=== PATIENT | female | born 1975 | race Caucasian/White ===

== ENCOUNTER 2016-10-18 17:00 | Inpatient (IN) | payer MEDICAID ==
[2016-10-18 23:42] VITALS: BP 116/86; PULSE 63; RESP 16; TEMP 97.5; O2SAT 99
[2016-10-19] MEDS ORDERED: MAGNESIUM HYDROXIDE SUSP 30 ML CUP PO PRN (02:30)
[2016-10-19] MEDS ORDERED: LORazepam 2 MG/ML VIAL IM PRN (02:30)
[2016-10-19 06:02] VITALS: BP 94/56; PULSE 60; RESP 16; TEMP 97.2
[2016-10-19] MEDS ORDERED: PNEUMOCOCCAL POLYVALENT INJ 25 MCG/0.5 ML SYR IM ONE (09:00)
[2016-10-19] MEDS ORDERED: INFLUENZA VIRUS VACCINE (QUADRIVALENT) 0.5 ML SYR IM ONE (09:00)
[2016-10-19] MEDS: ACETAMINOPHEN 325 MG TAB PO PRN ×2 (09:01→21:07)
[2016-10-19 09:10] LABS: AUTOMATED NEUTROPHIL # 2.2 TH/MM3 (1.8-7.7); BASOPHIL % 0.6 % (0.0-2.0); EOSINOPHIL # 0.3 TH/MM3 (0-0.4); EOSINOPHIL % 5.3 % (0.0-4.0); HEMATOCRIT 37.3 % (35.0-46.0); HEMO FLAGS DIFF FINAL; LYMPH % 47.5 % (9.0-44.0); LYMPHOCYTE # 2.6 TH/MM3 (1.0-4.8); MEAN CELL VOLUME 85.8 FL (80.0-100.0); MEAN CORPUSCULAR HEMOGLOBIN 27.9 PG (27.0-34.0); MEAN CORPUSCULAR HGB CONC 32.6 % (32.0-36.0); MONO % 6.3 % (0.0-8.0); NEUT % 40.3 % (16.0-70.0); PLATELET COUNT 240 TH/MM3 (150-450); RED BLOOD COUNT 4.35 MIL/MM3 (4.00-5.30); RED CELL DISTRIBUTION WIDTH 15.1 % (11.6-17.2); WHITE BLOOD COUNT 5.6 TH/MM3 (4.0-11.0)
[2016-10-19 09:30] LABS: BICARBONATE 26.3 MEQ/L (21.0-32.0); POTASSIUM 3.5 MEQ/L (3.5-5.1)
[2016-10-19 09:40] LABS: HDL CHOLESTEROL 64.3 MG/DL (40.0-60.0)
--- NOTE | 2016-10-19 10:47 | HHI.HP ---
Provisional Diagnosis Admission Date Oct 18, 2016 at 17:00 [place] I. Sedative hypnotics use disorder, substance-induced mood disorder [place] II. Deferred [place] III. Hypothyroidism, asthma, migraine [place] IV. Unemployed [place] V. 45 Certification of Person's Competence To Provide Express and Informed Consent I have personally examined Leah Gonzalez , a [facility] on, Oct 19, 2016 10:31. Express and informed consent means consent voluntarily given in writing, by a competent person, after sufficient explanation and disclosure of the subject matter involved to enable the person to make a knowing and willful decision without any element of force, fraud, deceit, duress, or other form of constraint or coercion. This person is 18 years of age or older, is not now known to be incompetent to consent to treatment with a guardian advocate, and does not have a health care surrogate or proxy currently making medical treatment decisions. I have found this person to be one of the following: [] Competent to provide express and informed consent, as defined above, for voluntary admission to this facility and is competent to provide express and informed consent for treatment. He/she has the consistent capacity to make well reasoned, willful, and knowing decisions concerning his or her medical or mental health treatment. The person fully and consistently understands the purpose of the admission for examination/placement and is fully capable of personally exercising all rights assured [place] Incompetent to provide express and informed consent to voluntary admission, and this is incompetent to provide express and informed consent to treatment. The person must be transferred to involuntary status and a petition for a guardian advocate filed with the Circuit Court. [X] Refusing to provide express and informed consent to voluntary admission but is competent to provide express and informed consent for treatment. The person must be discharged or transferred to involuntary status. Form shall be completed within 24 hours of a person's arrival at the receiving facility and filed in the clinical record of each person: 1. Admitted on a voluntary basis 2. Permitted to provide express and informed consent to his/her own treatment 3. Allowed to transfer from involuntary to voluntary status 4. Prior to permitting a person to consent to his or her own treatment after having been previously found incompetent to consent to treatment. History of Present Illness Capacity: Has Capacity HPI The patient is a 41-year-old Slovak woman, Italian speaker, , domicile with her and kids, mother of 9 kids, 4 of them living with her here in [place], unemployed, with psychiatric history of anxiety and depression, no previous psychiatric hospitalizations, no previous suicide attempts, no psychotropics, medical history of asthma, hypothyroidism and migraine, who was brought to the [place] act transferred from [facility] due to overdose with Fioricet. Chart was reviewed, case discussed with the nurse in charge, no collateral information couldn't be obtained at this moment, interview was performed in Italian in the psychiatric spivey. On psychiatric evaluation the patient was calm and cooperative, patient explains that after an argument with , after a very stressful week, she decided to overdose with about 10 pills of Fioricet with the intention to go to sleep. Patient states that she did know wanted to , she has too many reasons to live for, she has 9 kids, 4 of them note minors and she is hopeful that future is very better for her. However, patient states that for the last 3 months, since she moved from [place] to [place], life has been very stressful especially because of economical problems. At this moment the patient denies suicidal or homicidal ideation. She described her mood as fine, she denies hopelessness, helplessness, anhedonia, problems sleeping, problems with concentration or appetite, she denies anxiety, perceptual disturbances, past and current symptoms of max. Patient is fully oriented 3. She denies the use of illicit drugs and alcohol, however she admits overuse of Fioricet, mostly because of frequent headaches, but also because he has with anxiety and help to sleep. She is pacing in a day she may take 2-4-6 pills, she denies past symptoms of withdrawal. Review of Systems Constitutional: DENIES: Diaphoretic episodes, Fatigue, Fever, Weight gain, Weight loss, Chills, Dizziness, Change in appetite, Night Sweats Endocrine: DENIES: Abnorml menstrual pattern, Heat/cold intolerance, Polydipsia , Polyuria, Polyphagia Eyes: DENIES: Blurred vision, Diplopia, Eye inflammation, Eye pain, Vision loss , Photosensitivity, Double Vision Ears, nose, mouth, throat: DENIES: Tinnitus, Hearing loss, Vertigo, Nasal discharge, Oral lesions, Throat pain, Hoarseness, Ear Pain, Running Nose, Epistaxis, Sinus Pain, Toothache, Odynophagia Respiratory: DENIES: Apneas, Cough, Snoring, Wheezing, Hemoptysis, Sputum production, Shortness of breath Cardiovascular: DENIES: Chest pain, Palpitations, Syncope, Dyspnea on Exertion , PND, Lower Extremity Edema, Orthopnea, Claudication Gastrointestinal: DENIES: Abdominal pain, Black stools, Bloody stools, Constipation, Diarrhea, Nausea, Vomiting, Difficulty Swallowing, Anorexia Musculoskeletal: DENIES: Joint pain, Muscle aches, Stiffness, Joint Swelling, Back pain, Neck pain Integumentary: DENIES: Abnormal pigmentation, Pruritus, Rash, Nail changes, Breast masses, Breast skin changes, Nipple discharge Hematologic/lymphatic: DENIES: Bruising, Lymphadenopathy Immunologic/allergic: DENIES: Eczema, Urticaria Neurologic: DENIES: Abnormal gait, Headache, Localized weakness, Paresthesias, Seizures, Speech Problems, Tremor, Poor Balance Past Family Social History Coded Allergies: No Known Allergies (Unverified , 10/19/16) Current Medications Medications (Trade) Dose Ordered Sig/Kalin Route Start Time Stop Time Status Last Admin (Ativan) 1 mg Q6H PRN PO 10/19/16 02:30 (Ativan Inj) 1 mg Q6H PRN IM 10/19/16 02:30 (Tylenol) 650 mg Q4H PRN PO 10/19/16 02:30 10/19/16 09:01 (Milk Of Magnesia Liq) 30 ml DAILY PRN PO 10/19/16 02:30 (Mag-Al Plus Susp Liq) 30 ml Q6H PRN PO 10/19/16 02:30 Social History Patient was born and raised in [place], she has been living in [place] for 7 months, she is unemployed, she lived with her and 4 of her 9 kids. Physical Exam Vital Signs Vital Signs Date Time Temp Pulse Resp B/P Pulse Ox O2 Delivery O2 Flow Rate FiO2 10/19/16 06:02 97.2 60 16 94/56 10/18/16 23:42 99 Mental Status Examination Appearance Overweigh woman, age appearing, good hygiene,, cooperative Speech: Unremarkable Orientation: x3 Memory: Unremarkable Thought Process: Logical Thought Content: Unremarkable Hallucination Type: None Attention and Concentration: Good Suicidal Ideation: No Previous Suicide Attempts: Yes Homicidal Ideation: No Insight: Fair Judgement: Impulsive Affect: Euthymic Mood: Euthymic Motor Activity: Normal gait Assessment & Plan Problem List: (1) Substance induced mood disorder Assessment & Plan: 41-year-old Rican woman, with psychiatric history of anxiety and depression, no previous psychiatric hospitalizations, no previous suicidal attempt, who was brought to the hospital on the [place] act after overdosed with Fioricet. On psychiatric evaluation the patient admits overdosing with Fioricet, but denies suicidal intention. Patient also admits overusing this medication daily. At this moment she denies depressive symptoms , she denies anxiety, she denies max and perceptual disturbances. However, since collateral information is not available, is highly suspicious that patient may be minimizing depressive symptomatology and also more longitudinal observation would be important to complete the assessment, the patient will continue the process of psychiatric hospitalization for stabilization, observation and safety. I have the impression that this could be a short hospitalization. Extensive support, motivation psycho education provided. No psychotropics will be started at this moment. ICD Code: F19.94 Assessment & Plan Estimated LOS: 1-2 days Rajinder Cardenas MD Oct 19, 2016 10:47
--- NOTE | 2016-10-19 14:23 | PD.CONS ---
HPI Service [facility] Consult Requested By Psychiatric services Reason for Consult Medical management hypothyroidism, hyperlipidemia, chest pain intermittently ( not currently), chronic migraine and headaches Primary Care Physician Unknown Diagnoses: History of Present Illness This is a 41-year-old female patient Cook Islander-speaking only interview done by Dr. Sahu with nurse Jero corrigan. Patient has no history which includes hypothyroidism, migraine headaches, asthma and hyperlipidemia. Patient reports that she has been taking her Synthroid as well as her Singulair and her cholesterol medication on a regular basis. Patient reports that she takes Fioricet migraine headaches but has been told to stop taking them due to her potassium. Patient reports at this time she is a mild headache constant consistent with her typical migraines. Patient denies associated symptoms. Patient denies chest pain shortness of breath diaphoresis nausea vomiting diarrhea constipation fevers or chills. Patient does report loose stools proximal 2 days ago denies abdominal pain. Review of Systems Other All other systems reviewed and negative except as mentioned in history of present illness Past Family Social History Allergies: Coded Allergies: No Known Allergies (Unverified , 10/19/16) Past Medical History hypothyroidism, migraine headaches, asthma and hyperlipidemia Past Surgical History Tubal ligation Reported Medications Synthroid unknown dose, furosemide 25 mg as needed for headache, Singulair for asthma and cholesterol medication unknown Active Ordered Medications Current Medications Medications (Trade) Dose Ordered Sig/Kalin Route Start Time Stop Time Status Last Admin (Ativan) 1 mg Q6H PRN PO 10/19/16 02:30 (Ativan Inj) 1 mg Q6H PRN IM 10/19/16 02:30 (Tylenol) 650 mg Q4H PRN PO 10/19/16 02:30 10/19/16 09:01 (Milk Of Magnesia Liq) 30 ml DAILY PRN PO 10/19/16 02:30 (Mag-Al Plus Susp Liq) 30 ml Q6H PRN PO 10/19/16 02:30 Family History Grandfather had diabetes Social History Denies EtOH use tobacco use or illicit drug use Physical Exam Vital Signs Vital Signs Date Time Temp Pulse Resp B/P Pulse Ox O2 Delivery O2 Flow Rate FiO2 10/19/16 06:02 97.2 60 16 94/56 10/18/16 23:42 97.5 63 16 116/86 99 Physical Exam GENERAL: This is a well-nourished, well-developed patient, in no apparent distress. SKIN: No rashes, ecchymoses or lesions. Cool and dry. HEAD: Atraumatic. Normocephalic. No temporal or scalp tenderness. EYES: Extraocular motions intact. No scleral icterus. No injection or drainage. ENT: Nose without bleeding, purulent drainage or septal hematoma. Throat without erythema, tonsillar hypertrophy or exudate. Uvula midline. Airway patent. NECK: Trachea midline. No JVD or lymphadenopathy. Supple, nontender, no meningeal signs. CARDIOVASCULAR: Regular rate and rhythm without murmurs, gallops, or rubs. RESPIRATORY: Clear to auscultation. Breath sounds equal bilaterally. No wheezes , rales, or rhonchi. GASTROINTESTINAL: Abdomen soft, non-tender, nondistended. No guarding. MUSCULOSKELETAL: Extremities without clubbing, cyanosis, or edema. No joint tenderness, effusion, or edema noted. No calf tenderness. Negative Homans sign bilaterally. NEUROLOGICAL: Awake and alert. No focal deficit Motor and sensory grossly within normal limits. Five out of 5 muscle strength in all muscle groups. Laboratory Laboratory Tests Test 10/19/16 08:31 White Blood Count 5.6 Red Blood Count 4.35 Hemoglobin 12.1 Hematocrit 37.3 Mean Corpuscular Volume 85.8 Mean Corpuscular Hemoglobin 27.9 Mean Corpuscular Hemoglobin 32.6 Concent Red Cell Distribution Width 15.1 Platelet Count 240 Mean Platelet Volume 8.1 Neutrophils (%) (Auto) 40.3 Lymphocytes (%) (Auto) 47.5 Monocytes (%) (Auto) 6.3 Eosinophils (%) (Auto) 5.3 Basophils (%) (Auto) 0.6 Neutrophils # (Auto) 2.2 Lymphocytes # (Auto) 2.6 Monocytes # (Auto) 0.4 Eosinophils # (Auto) 0.3 Basophils # (Auto) 0.0 CBC Comment DIFF FINAL Differential Comment Sodium Level 139 Potassium Level 3.5 Chloride Level 105 Carbon Dioxide Level 26.3 Anion Gap 8 Blood Urea Nitrogen 7 Creatinine 0.88 Estimat Glomerular Filtration 70 Rate Random Glucose 93 Calcium Level 8.2 Triglycerides Level 227 Cholesterol Level 282 LDL Cholesterol 172 HDL Cholesterol 64.3 Cholesterol/HDL Ratio 4.38 Thyroid Stimulating Hormone 74.200 3rd Gen Result Diagram: 10/19/1631 10/19/1631 Assessment and Plan Assessment and Plan This is a 41-year-old female patient Cook Islander-speaking only interview done by Dr. Sahu with nurse Jero crorigan. Patient has no history which includes hypothyroidism, migraine headaches, asthma and hyperlipidemia. Mild Headache- will start ibuprofen as needed - if not relieved by ibuprofen may try Fioricet Hypothyroidism patient reports she has taken her regular Synthroid dose although TSH should be elevated at 74 check free T4 and free T3 Hyperlipidemia patient reports she is taking her cholesterol medication as she is unable to recall the name or dose LDL elevated at 6 when 72 will have RN verified medication and dose with pharmacy and adjust as indicated Asthma will continue Singulair with duo nebs as needed DVT prophylaxis patient is ambulatory Discussed with patient nurse Written by Krysta Guerra, acting as scribe for Dr. Sahu on 10/19/16 at 14:23. The documentation accurately reflects the work performed [id number] by me on at 14:23 Krysta Guerra Oct 19, 2016 14:23 Fabian Sahu MD Oct 19, 2016 15:02
[2016-10-19] MEDS ORDERED: IBUPROFEN 600 MG TAB PO PRN (14:30)
[2016-10-19] MEDS ORDERED: RESP: ALBUTEROL 2.5 MG/IPRATROPIUM 0.5 MG NEB (PRN) NEB (15:00)
[2016-10-19 15:07] LABS: FREE T3 0.96 PG/ML (2.18-3.98); FREE T4 0.57 NG/DL (0.76-1.46)
[2016-10-19] MEDS ORDERED: BUTA1CAP PO (16:15)
[2016-10-19] MEDS ORDERED: SIMV20TA PO (16:24)
[2016-10-19] MEDS ORDERED: LEVO100T5 PO (16:26)
[2016-10-19] MEDS: IBUPROFEN 400 MG TAB PO PRN (16:39)
[2016-10-19] MEDS: ALUMINUM/MAGNESIUM/SIMETH 30 ML CUP PO PRN (16:40)
[2016-10-19 18:00] VITALS: BP 120/87; PULSE 72; RESP 16; TEMP 98.2; O2SAT 96
[2016-10-19] MEDS: LORazepam 1 MG TAB PO PRN (21:06)
[2016-10-19] MEDS: MONTELUKAST SODIUM 10 MG TAB PO SCH (21:06)
[2016-10-20] MEDS: IBUPROFEN 400 MG TAB PO PRN ×2 (05:45→22:43)
[2016-10-20 06:01] VITALS: BP 108/70; PULSE 69; RESP 16; TEMP 96.8; O2SAT 100
[2016-10-20] MEDS ORDERED: PRAVASTATIN SOD 40 MG TAB PO PRN (08:00)
[2016-10-20] MEDS ORDERED: LEVOTHYROXINE SODIUM 100 MCG TAB PO SCH (09:00)
[2016-10-20] MEDS: ALUMINUM/MAGNESIUM/SIMETH 30 ML CUP PO PRN ×3 (09:19→22:43)
[2016-10-20] MEDS: LORazepam 1 MG TAB PO PRN ×2 (09:19→22:47)
[2016-10-20] MEDS ORDERED: SUMAtriptan SUCCINATE 50 MG TAB PO ONE (10:00)
--- NOTE | 2016-10-20 10:22 | HHI.PYPN ---
Subjective Remarks Patient seen, chart reviewed, case discussed with staff Patient reports she has a severe migraine with continued pain. She reports she is having considerable problems thinking about anything else, or focusing on anything else due to her pain. She reports she misses her children at home. She denies SI, AH, HI VH at present and is minimizing previous depression. However, reviewing the record it appears that the patient did OD on her medications as part of a suicide attempt of at least cry for help. Review of Systems Except as stated in HPI: all other systems reviewed are Neg Neurologic: COMPLAINS OF: Headache Psychiatric: COMPLAINS OF: Anxiety, Mood changes, Depression Other otherwise 10 point ROS is negative Objective Alert: Yes Sun: Person, Place, Situation Mood: Anxious Affect: Labile Memory Intact: Immediate Hallucinations: Other (denies) Delusions: No Delusion Type: Other (no) Suicidal: Ideation (she is denying today but history suggests recent SI) Homicidal: Ideation (no) Insight/Judgement poor Vitals/IOs Vital Signs Date Time Temp Pulse Resp B/P Pulse Ox O2 Delivery O2 Flow Rate FiO2 10/20/16 06:01 96.8 69 16 108/70 100 Assessment & Plan Problem List: (1) Substance induced mood disorder Assessment & Plan: Patient does appear to have problems with pain issues, however, we will treat migrane and will attempt to address underlying depression which can lead to worsening migraine. ICD Code: F19.94 Assessment & Plan Estimated LOS: days Justification for Cont. Inpt. medication changes requiring active monitoring, risk of decompensating Jing Small MD Oct 20, 2016 10:22
--- NOTE | 2016-10-20 15:02 | HHI.PR ---
Subjective Remarks Follow up" Medical management hypothyroidism, hyperlipidemia, chronic migraine and headaches Patient resting in bed in no acute distress told patient that we will increase her Synthroid dose Objective Vitals Vital Signs Date Time Temp Pulse Resp B/P Pulse Ox O2 Delivery O2 Flow Rate FiO2 10/20/16 06:01 96.8 69 16 108/70 100 10/19/16 18:00 98.2 72 16 120/87 96 Result Diagram: 10/19/1683010/19/1631 Objective Remarks GENERAL: This is a well-nourished, well-developed patient, in no apparent distress. SKIN: No rashes, ecchymoses or lesions. Cool and dry. HEAD: Atraumatic. Normocephalic. No temporal or scalp tenderness. EYES: Extraocular motions intact. No scleral icterus. No injection or drainage. ENT: Nose without bleeding, purulent drainage or septal hematoma. Throat without erythema, tonsillar hypertrophy or exudate. Uvula midline. Airway patent. NECK: Trachea midline. No JVD or lymphadenopathy. Supple, nontender, no meningeal signs. CARDIOVASCULAR: Regular rate and rhythm without murmurs, gallops, or rubs. RESPIRATORY: Clear to auscultation. Breath sounds equal bilaterally. No wheezes , rales, or rhonchi. GASTROINTESTINAL: Abdomen soft, non-tender, nondistended. No guarding. MUSCULOSKELETAL: Extremities without clubbing, cyanosis, or edema. No joint tenderness, effusion, or edema noted. No calf tenderness. Negative Homans sign bilaterally. NEUROLOGICAL: Awake and alert. No focal deficit Motor and sensory grossly within normal limits. Five out of 5 muscle strength in all muscle groups. A/P Assessment and Plan This is a 41-year-old female patient Mauritanian-speaking only interview done by Dr. Sahu with nurse Jero corrigan. Patient has no history which includes hypothyroidism, migraine headaches, asthma and hyperlipidemia. Mild Headache- continue ibuprofen as needed - if not relieved by ibuprofen may use Fioricet Hypothyroidism- increase Synthroid to 112mg daily patient to follow up with outpatient PCP or drill presser after DC Hyperlipidemia- continue statin Asthma will continue Singulair with duonebs as needed DVT prophylaxis patient is ambulatory Discussed with patient nurse Patient appears medically stable will sign off. Written by Krysta Guerra, acting as scribe for Dr. Sahu on 10/20/16 at 15:01. The documentation accurately reflects the work performed [id number] by me on at 15:01. Krysta Guerra Oct 20, 2016 15:02 Fabian Sahu MD Oct 21, 2016 17:09
[2016-10-20] MEDS ORDERED: SYNT112T PO (15:03)
[2016-10-20] MEDS: MONTELUKAST SODIUM 10 MG TAB PO SCH (22:43)
[2016-10-21 02:00] VITALS: BP 98/63; PULSE 59; RESP 16; TEMP 97.8; O2SAT 98
[2016-10-21] MEDS ORDERED: LEVOTHYROXINE SODIUM 112 MCG TAB PO SCH (06:00)
[2016-10-21 06:01] VITALS: BP 138/84; PULSE 76; RESP 16; TEMP 98
[2016-10-21] MEDS ORDERED: ESCITALOPRAM OXALATE 10 MG TAB PO SCH (09:00)
[2016-10-21] MEDS ORDERED: ESCI10TA PO (11:02)
--- NOTE | 2016-10-21 11:03 | HHI.DS ---
Psychiatry Discharge Summary Inpatient Psychiatric care?: Yes Advance Directive: No Reason Not Provided: at a later time Mental Health AdvanceDirective: No Health Care Proxy: No Admission Admission Date Oct 18, 2016 at 17:00 Admission Diagnosis: (1) Substance induced mood disorder ICD Code: F19.94 Brief History The patient is a 41-year-old [place] woman, Mohawk speaker, , domicile with her and kids, mother of 9 kids, 4 of them living with her here in [place], unemployed, with psychiatric history of anxiety and depression, no previous psychiatric hospitalizations, no previous suicide attempts, no psychotropics, medical history of asthma, hypothyroidism and migraine, who was brought to the [facility] transferred from [facility] due to overdose with Fioricet. Chart was reviewed, case discussed with the nurse in charge, no collateral information couldn't be obtained at this moment, interview was performed in [place] in the psychiatric spivey. On psychiatric evaluation the patient was calm and cooperative, patient explains that after an argument with , after a very stressful week, she decided to overdose with about 10 pills of Fioricet with the intention to go to sleep. Patient states that she did know wanted to , she has too many reasons to live for, she has 9 kids, 4 of them note minors and she is hopeful that future is very better for her. However, patient states that for the last 3 months, since she moved from [place] to [place], life has been very stressful especially because of economical problems. At this moment the patient denies suicidal or homicidal ideation. She described her mood as fine, she denies hopelessness, helplessness, anhedonia, problems sleeping, problems with concentration or appetite, she denies anxiety, perceptual disturbances, past and current symptoms of max. Patient is fully oriented 3. She denies the use of illicit drugs and alcohol, however she admits overuse of Fioricet, mostly because of frequent headaches, but also because he has with anxiety and help to sleep. She is pacing in a day she may take 2-4-6 pills, she denies past symptoms of withdrawal. Tobacco Use In Past 30 Days: No Tobacco Past 30 Days Alcohol Use: Never Hospital Course Patient was admitted to a locked, inpatient psychiatric unit. A general medical consultation was obtained and the patient was medically cleared prior to discharge. Appropriate precautions were in place throughout patient's hospital stay. Patient was seen and examined daily on the unit by psychiatry and also visited by counselor. Patient tolerated psychotropic medications well during her hospital stay. There was no evidence of any suicidality or homicidality. Patient remained in good behavioral control and was compliant with medications. On the day of discharge: Chart reviewed. Case discussed with nursing staff. Patient has been no behavioral problem. This is my first evaluation of the patient and so I obtained a full past psychiatric, family, chemical dependency and social history from the patient with the assistance of beryl Reina acting as boatwright. The patient denies personal or family history of suicide. She denies a history of psychiatric admissions. On my examination today, the patient insists that she was not intending to injure herself when she overdosed on medications. She says that she has migraines and was just trying to treat them better. She denies suicidal ideation, intent or plan on direct questioning now and says that she would never intentionally hurt herself on account of her children. She asks, if she was supposed to have intentionally hurt herself, why would she have called the ambulance herself. Patient denies any issues with mood at this time. She denies any AVH and I can elicit no delusional material. Nurse has called the family and obtained reassuring collateral. Weighing the acute, chronic, and protective factors and based on the available evidence, I shoe parts caser to a reasonable degree of medical certainty that the patient is at low imminent risk of harm to self or others from a mental illness as defined under the [place] act and her level of function appears to be adequate for outpatient care. Patient will be discharged today in stable condition with psychiatric follow-up as arranged by counselor. Patient is also to follow-up with primary care. Results Blood Pressure 138 / 84 Vital Signs Date Time Temp Pulse Resp B/P Pulse Ox O2 Delivery O2 Flow Rate FiO2 10/21/16 06:01 98.0 76 16 138/84 10/21/16 02:00 98 Laboratory Tests Test 10/19/16 08:31 Lymphocytes (%) (Auto) 47.5 % (9.0-44.0) Eosinophils (%) (Auto) 5.3 % (0.0-4.0) Estimat Glomerular Filtration 70 ML/MIN (>89) Rate Calcium Level 8.2 MG/DL (8.5-10.1) Triglycerides Level 227 MG/DL (42-150) Cholesterol Level 282 MG/DL (120-200) LDL Cholesterol 172 MG/DL (0-99) HDL Cholesterol 64.3 MG/DL (40.0-60.0) Free Thyroxine 0.57 NG/DL (0.76-1.46) Free Triiodothyronine (T3) 0.96 PG/ML pg/dL (2.18-3.98) Thyroid Stimulating Hormone 74.200 uIU/ML 3rd Gen (0.358-3.740) Laboratory Results Test 10/19/16 08:31 Triglycerides Level 227 MG/DL (42-150) Cholesterol Level 282 MG/DL (120-200) LDL Cholesterol 172 MG/DL (0-99) HDL Cholesterol 64.3 MG/DL (40.0-60.0) Summary of Procedures None done Imaging None done Pending results at discharge: No Medications # of Antipsychotic meds at D/C: 0 Approp Antipsych med options 1 - Minimum of three failed multiple trials of monotherapy. 2 - Documented plan to taper to monotherapy due to previous use of multiple meds OR cross-taper in progress at D/C. 3 - Documentation of augmentation of Clozapine. 4 - Justification other than those listed in allowable values 1-3, document here : Discharge Discharge Date: Oct 21, 2016 Discharge Diagnosis: (1) Substance induced mood disorder Diagnosis: Principal (stable) ICD Code: F19.94 GAF is 60 on discharge. Mental Status Exam at Disch Patient is in hospital gown. She is well groomed. She is awake and alert and oriented to person and hospital at least. No abnormal motor movements noted. Speech is within normal limits for rate, tone and volume. Language and fund of knowledge seem adequate and appropriate for age. Mood is fair and affect is full and reactive. Thought process linear. No loosening of associations. No evident delusions. Denies AVH. Denies SI or HI. Insight and judgment are fair. Pt Condition on Discharge: Stable Discharge Disposition: Discharge Home Discharge Instructions Diet Instructions: As Tolerated, No Restrictions Activities you can perform: Weight Bearing as Jf Scheduled Appointment: as per counselor's notes New Medications: Escitalopram (Escitalopram) 10 Mg Tab 10 MG PO DAILY Mental Health Days 15 Ref 1 TAB Levothyroxine (Synthroid) 112 Mcg Tab 112 MCG PO DAILY@06 thyroid Days 30 Ref 0 TAB Continued Medications: Eexfgquwiy-Efkpyfvtfamgi-Ijatqoev (Fioricet) 50-300-40 Mg Cap 1 CAP PO Q4H PRN HEADACHE Ref 0 CAP Simvastatin (Simvastatin) 20 Mg Tab 20 MG PO DAILY PRN hours of sleep #30 Ref 1 TAB Discontinued Medications: Levothyroxine (Levothyroxine) 100 Mcg Tab 100 MCG PO DAILY Thyroid #30 Ref 1 TAB Discharge Time <= 30 minutes Discharge/Advance Care Plan Health Problems: (1) Substance induced mood disorder Goals to promote your health * To prevent worsening of your condition and complications * To maintain your health at the optimal level Directions to meet your goals Take your medications as prescribed Follow your dietary instruction Follow activity as directed Keep your appointments as scheduled Take your immunizations and boosters as scheduled If your symptoms worsen call your PCP, if no PCP go to Urgent Care Center or Emergency Room For 11/05 questions related to your inpatient stay or results of tests pending at discharge, please contact Dr. Nikolas Rangel at Smoking is Dangerous to Your Health. Avoid second hand smoking Nikolas Rangel MD Oct 21, 2016 11:02
== END 2016-10-21 15:40 | disposition home or self-care (01) | DRG 897 ==
LOC: H260 17:00
PROVIDERS: ADMIT Psychiatry & Neurology Addiction Medicine; ATTEND Psychiatry & Neurology Addiction Medicine
DX: F13.14 Sedative, hypnotic or anxiolytic abuse with sedative, hypnotic or anxiolytic-induced mood disorder (principal); F32.9 Major depressive disorder, single episode, unspecified; F41.9 Anxiety disorder, unspecified; E03.9 Hypothyroidism, unspecified; J45.909 Unspecified asthma, uncomplicated; G43.709 Chronic migraine without aura, not intractable, without status migrainosus; E78.5 Hyperlipidemia, unspecified; Z28.82 Immunization not carried out because of caregiver refusal
CPT/HCPCS: 80048; 80061; 84439; 84443; 84481; 85025